=== PATIENT | male | born 1990 | race Caucasian/White ===

== ENCOUNTER 2022-04-28 19:25 | Emergency (ER) | payer OTHER, SELFPAY ==
[2022-04-28 19:43] VITALS: BP 140/86; BP 162/100; PULSE 118; PULSE 87; RESP 16; TEMP 36.6; O2SAT 94; O2SAT 97; BMI 25.0
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
[2022-04-28] MEDS: Lidocaine HCl 1% PF/Epi 1:200,000 30 ML VIAL INFILTRATI (22:53)
== END 2022-04-28 23:02 | disposition home or self-care (01) ==
PROVIDERS: Emergency Provider Emergency Medicine
DX: S01.81XA Laceration without foreign body of other part of head, initial encounter (principal); Y04.8XXA Assault by other bodily force, initial encounter; Y93.89 Activity, other specified; Y92.511 Restaurant or cafe as the place of occurrence of the external cause; Y99.9 Unspecified external cause status
CPT/HCPCS: 12052; 99282; 99284

== ENCOUNTER 2022-11-01 03:55 | Emergency (ER) | payer OTHER, SELFPAY ==
--- NOTE | 2022-11-01 07:32 | PC.NURSE ---
see downtime paperwork
[2022-11-01 07:40] VITALS: BP 125/87; PULSE 88; RESP 16; O2SAT 98
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
--- NOTE | 2022-11-01 08:45 | PC.NURSE ---
patient awake and alert x3, ambulated to bathroom with strong steady gait.
== END 2022-11-01 08:54 | disposition home or self-care (01) ==
PROVIDERS: Emergency Provider Emergency Medicine
DX: F10.220 Alcohol dependence with intoxication, uncomplicated (principal); Y90.9 Presence of alcohol in blood, level not specified
CPT/HCPCS: 99282